=== PATIENT | male | born 2000 | race African-American/Black ===

== ENCOUNTER 2025-01-25 20:59 | Emergency (ER) | payer OTHER, SELFPAY ==
[2025-01-25 21:03] VITALS: BP 137/85; PULSE 81; RESP 16; TEMP 37; O2SAT 100
--- NOTE | 2025-01-25 21:49 | ED_ITS ---
HPI - Burn/Smoke Inhalation General Chief complaint: Burn/Smoke Inhalation Stated complaint: workplace injury Time Seen by Provider: 01/25/25 21:11 Source: patient Mode of arrival: ambulatory Limitations: no limitations History of Present Illness HPI Narrative: This is a 24-year-old male that presents emergency department for left hand burn. Sustained a couple of hours prior to arrival. Reports he accidentally tipped his hand and boiling water. Reports tellez to the 2nd through 4th fingers. Unsure of last tetanus vaccination. Denies decreased range of motion or numbness. Related Data Allergies Allergy/AdvReac Type Severity Reaction Status Date / Time No Known Allergies Allergy Verified 01/25/25 21:00 Review of Systems Review of Systems: All systems reviewed & are unremarkable except as noted in HPI and below PMFSH Past Medical History Medical History (Updated 01/25/25 @ 21:54 by Liss Reyes PA-C) No active medical problems Exam Narrative: GENERAL: Well-appearing, well-nourished, and in no acute distress. HEAD: Normocephalic, atraumatic. EYES: EOMI. EXTREMITIES: Normal range of motion. No edema. Blistering to the mid to distal 2nd-4th fingers, dorsal aspect SKIN: Warm, dry, no rash. NEURO: No focal deficits. Alert and oriented x3. PSYCH: Normal mood and affect Course Vital Signs Vital signs: Vital Signs Temperature 98.6 F 01/25/25 21:03 Pulse Rate 81 01/25/25 21:03 Respiratory Rate 16 01/25/25 21:03 Blood Pressure 137/85 01/25/25 21:03 Pulse Oximetry 100 01/25/25 21:03 Oxygen Delivery Room Air 01/25/25 21:03 Temperature 98.6 F 01/25/25 21:03 Pulse Rate 81 01/25/25 21:03 Respiratory Rate 16 01/25/25 21:03 Blood Pressure 137/85 01/25/25 21:03 Pulse Oximetry 100 01/25/25 21:03 Oxygen Delivery Room Air 01/25/25 21:03 MDM - Burn/Smoke Inhalation MDM Narrative Medical decision making narrative: Patient with superficial partial-thickness tellez to the ends of the 2nd through 4th fingers. Refused tetanus vaccination. Wounds were cleansed and covered with Silvadene and a bandage. Patient was educated on further wound care. Given information for follow-up with [facility]. He was given warnings to return to the ER Critical Care Time Critical Care Time Critical Care Time: No Discharge Plan Discharge Clinical Impression: Superficial partial thickness burn of digit of hand Patient Disposition: Home Condition: Stable Instructions: Second-Degree Burn (ED) Additional Instructions: Return to the emergency department if you experience fever, redness or swelling of your wound, abnormal drainage from your wound, or any other symptoms that are concerning to you. Apply burn cream daily. Do not soak the wound. Clean with mild soap and water daily Follow-up with [facility] burn clinic Patient Language: Indian Follow-up/Referrals: PHYSICIAN,[employer] TECHNICIAN [Primary Care Provider, Internal Medicine]
[2025-01-25] MEDS: SILVER SULFADIAZINE 1% CR 50 GM JAR (*BKC) 1 APPLIC TOPICAL (22:14)
[2025-01-25] MEDS: TETANUS,DIPHTHERIA,AC PERTUSSIS ADULT (0.5 ML) BOOSTRIX IM (22:21)
== END 2025-01-25 22:27 | disposition home or self-care (01) ==
PROVIDERS: Emergency Provider Physician Assistant
DX: T23.232A Burn of second degree of multiple left fingers (nail), not including thumb, initial encounter (principal); T31.0 Burns involving less than 10% of body surface; Z23 Encounter for immunization; X12.XXXA Contact with other hot fluids, initial encounter
CPT/HCPCS: 16000; 16020; 90471; 90715; 99283; A9270